=== PATIENT | female | born 1950 | race Caucasian/White ===

== ENCOUNTER → 2018-04-12 | Outpatient (CLI) | payer MEDICARE | END | disposition home or self-care (01) | LOC: CFH 11:46 → EDSTATUS 12:30 | PROVIDERS: ATTEND Family Medicine | DX: Z13.820 Encounter for screening for osteoporosis (principal); M85.88 Other specified disorders of bone density and structure, other site; M81.8 Other osteoporosis without current pathological fracture | CPT/HCPCS: 77080 ==

== ENCOUNTER → 2018-04-19 | Outpatient (CLI) | payer MEDICARE | END | disposition home or self-care (01) | LOC: CFH 13:55 | PROVIDERS: ATTEND Nurse Practitioner Family | DX: J44.9 Chronic obstructive pulmonary disease, unspecified (principal) | CPT/HCPCS: 71250 ==

== ENCOUNTER → 2018-06-02 | Outpatient (CLI) | payer MEDICARE | END | disposition home or self-care (01) | LOC: CFH 13:57 | PROVIDERS: ATTEND Family Medicine | DX: R92.2 Inconclusive mammogram (principal) | CPT/HCPCS: 77066 ==

== ENCOUNTER 2018-10-20 15:06 | Emergency (ER) | payer MEDICARE ==
[~2018-10-20] VITALS: Ht 170.2 cm; Wt 85.0 kg
--- NOTE | 2018-10-20 15:10 | NUR ---
Pt BIB EMS for [facility] outside of [facility] and [facility] where the pt was walking into physical therapy and fell on loose rocks. Pt fell onto her left knee, left wrist, and left side of her face. Pt with obvious swelling to left wrist and abrasions to left knee.
[2018-10-20] MEDS ORDERED: ACETAMINOPHEN 325 MG TABLET ONE (16:20)
--- NOTE | 2018-10-20 16:22 | NUR ---
Pt medicated per AUG. Pt resting with ice pack on wrist.
--- NOTE | 2018-10-20 16:26 | NUR ---
XR at bedside.
[2018-10-20] MEDS ORDERED: ACETAMINOPHEN 325 MG TABLET PO ONE (16:30)
--- NOTE | 2018-10-20 16:54 | NUR ---
Pt ambulated to bathroom, no assistance required.
[2018-10-20 17:22] VITALS: BP 170/94
--- NOTE | 2018-10-20 17:22 | NUR ---
Pt resting on gurney, at bedside. Pt updated that we are waiting on recommendations from ortho regarding fx.
--- NOTE | 2018-10-20 17:43 | NUR ---
Dayna CARNES, at bedside to discuss ED findings and POC.
--- NOTE | 2018-10-20 17:49 | NUR ---
Pharmacy slip sent for michel.
[2018-10-20] MEDS ORDERED: PREGABALIN 200 MG CAPSULE PO ONE (18:00)
--- NOTE | 2018-10-20 18:14 | NUR ---
EDT at bedside for EKG.
--- NOTE | 2018-10-20 18:56 | NUR ---
Patient/Caregiver given discharge instructions and they have confirmed that they understand the instructions. Patient ambulatory with steady gait.
== END 2018-10-20 18:57 | disposition home or self-care (01) ==
LOC: ED 18:44
DX: S52.502A Unspecified fracture of the lower end of left radius, initial encounter for closed fracture (principal); S52.602A Unspecified fracture of lower end of left ulna, initial encounter for closed fracture; S79.912A Unspecified injury of left hip, initial encounter; S09.93XA Unspecified injury of face, initial encounter; I10 Essential (primary) hypertension; R51 Headache; W01.0XXA Fall on same level from slipping, tripping and stumbling without subsequent striking against object, initial encounter; Y92.89 Other specified places as the place of occurrence of the external cause; Y93.01 Activity, walking, marching and hiking; Y99.8 Other external cause status; Y92.410 Unspecified street and highway as the place of occurrence of the external cause
CPT/HCPCS: 29125; 70450; 70486; 93005; 99284